=== PATIENT | female | born 1940 | race Caucasian/White ===

== ENCOUNTER → 2018-04-18 08:19 | Outpatient (REF) | payer MEDICARE, SELFPAY ==
[2018-04-18 09:10] LABS: Add Manual Diff / Slide Review NO; Basophils Percent Auto 0.7 % (0-2); Eosinophils Percent Auto 2.8 % (2-4); Hematocrit 42.9 % (36-46); Hemoglobin 14.3 g/dL (12.0-16.0); Lymphocytes Percent Auto 31.2 % (25-40); Mean Corpuscular HGB Conc 33.3 % (30-36); Mean Corpuscular Hemoglobin 30.3 PG (26-34); Mean Corpuscular Volume 90.8 fL (80-100); Monocytes Percent Auto 7.4 % (3-14); Neutrophils Absolute Auto 4600 /uL (3000-5900); Neutrophils Percent Auto 57.9 % (50-75); Platelet Count 283 X10^3/uL (150-400); Red Blood Cell Count 4.73 X10^6/uL (4.0-5.2); Red Cell Distribution Width 13.8 % (11.6-14.8); White Blood Cell Count 7.9 X10^3/uL (4.5-11.0)
[2018-04-18 09:29] LABS: Blood Urea Nitrogen 17 mg/dL (7-17); Calcium 9.2 mg/dL (8.4-10.2); Carbon Dioxide 32 mmol/L (22-32); Chloride 102 mmol/L (98-107); Estimated Glomerular Filt Rate 53.3 mL/min (>60); Glucose 110 mg/dL (80-110); HEMOLYSIS < 15 (0-50); Potassium 3.8 mmol/L (3.4-5.1); Sodium 142 mmol/L (137-145)
[2018-04-18 09:56] LABS: Vitamin D 25 Hydroxy (D3) < 15 ng/mL (30.0-100.0)
[2018-04-18 10:15] LABS: Vitamin B12 431 pg/mL (239-931)
== END ==
LOC: LAB 08:19
PROVIDERS: Family Provider Internal Medicine; PCP Internal Medicine; Visit Provider Nurse Practitioner Family
DX: R41.89 Other symptoms and signs involving cognitive functions and awareness (principal); Z90.5 Acquired absence of kidney
CPT/HCPCS: 36415; 80048; 82306; 82607; 85025

== ENCOUNTER → 2018-07-18 08:08 | Outpatient (REF) | payer MEDICARE, SELFPAY ==
[2018-07-18 09:53] LABS: Vitamin D 25 Hydroxy (D3) 35.7 ng/mL (30.0-100.0)
== END ==
LOC: LAB 08:08
PROVIDERS: Family Provider Internal Medicine; PCP Internal Medicine; Visit Provider Nurse Practitioner Family
DX: E55.9 Vitamin D deficiency, unspecified (principal)
CPT/HCPCS: 36415; 82306

== ENCOUNTER → 2018-12-03 08:49 | Outpatient (REF) | payer MEDICARE, SELFPAY ==
[2018-12-03 10:09] LABS: BUN Creatinine Ratio 17.8 (6-22); Blood Urea Nitrogen 16 mg/dL (7-17); Calcium 8.8 mg/dL (8.4-10.2); Carbon Dioxide 29 mmol/L (22-32); Chloride 103 mmol/L (98-107); Estimated Glomerular Filt Rate > 60.0 mL/min (>60); Glucose 73 mg/dL (80-110); HEMOLYSIS < 15 (0-50); Potassium 4.8 mmol/L (3.4-5.1); Sodium 139 mmol/L (137-145)
[2018-12-03 10:12] LABS: Add Manual Diff / Slide Review NO; Basophils Absolute Auto 0 /uL (0-100); Basophils Percent Auto 0.7 % (0-2); Eosinophils Absolute Auto 200 /uL (0-450); Eosinophils Percent Auto 3.6 % (2-4); Hemoglobin 13.2 g/dL (12.0-16.0); Lymphocytes Absolute Auto 1900 /uL (1100-4500); Lymphocytes Percent Auto 29.5 % (25-40); Mean Corpuscular HGB Conc 33.8 % (30-36); Mean Corpuscular Hemoglobin 30.4 PG (26-34); Mean Corpuscular Volume 89.7 fL (80-100); Monocytes Absolute Auto 400 /uL (0-900); Monocytes Percent Auto 7.1 % (3-14); Neutrophils Absolute Auto 3700 /uL (1500-7000); Neutrophils Percent Auto 59.1 % (50-75); Platelet Count 246 X10^3/uL (150-400); Red Blood Cell Count 4.34 X10^6/uL (4.0-5.2); Red Cell Distribution Width 13.5 % (11.6-14.8); White Blood Cell Count 6.3 X10^3/uL (4.5-11.0)
[2018-12-03 10:42] LABS: Thyroid Stimulating Hormone 0.67 uIU/mL (0.47-4.68)
== END ==
LOC: LAB 08:49
PROVIDERS: Registered Nurse; Family Provider Internal Medicine; PCP Internal Medicine; Visit Provider Internal Medicine
DX: R63.5 Abnormal weight gain (principal)
CPT/HCPCS: 36415; 80048; 84443; 85025

== ENCOUNTER → 2019-01-04 13:03 | Outpatient (CLI) | payer MEDICARE, SELFPAY ==
--- NOTE | 2019-01-04 | DI.MRI.S_ITS ---
PROCEDURE: MR HEAD/BRAIN WO CON INDICATIONS: Unspecified dementia with behavioral disturbance TECHNIQUE: Non-contrast axial T1 spin echo, axial T2 fast spin echo, sagittal and axial FLAIR, coronal T2 fast spin echo, axial gradient echo, axial diffusion and ADC through the brain. COMPARISON: [facility], MR, BRAIN WITHOUT CONTRAST, 05/29/2014, 9:49. FINDINGS: Image quality: Excellent. CSF spaces: Ventricles appear symmetric in size and shape. Basal cisterns are patent. No extra-axial fluid collections. Brain: No intracranial bleeds or mass effects. There is cerebral volume loss for age. There are periventricular and deep white matter chronic small vessel ischemic changes. Brainstem appears normal. Diffusion-weighted images show no acute ischemic insults. No chronic ischemic insults. Normal intravascular flow voids are present. Skull and face: Calvarial bone marrow is normal in signal. Orbits are normal. Note is made of bilateral lens replacements. Sinuses: Sinuses and mastoids are clear. IMPRESSION: Note is made of age-appropriate brain parenchymal volume loss and chronic small vessel ischemic changes. No findings of acute or subacute infarction can be seen. No masses or mass effect can be seen on this noncontrast study. Dictated by: Burton De Luna M.D. on 01/04/2019 at 13:24 Approved by: Burton De Luna M.D. on 01/04/2019 at 13:26
== END ==
PROVIDERS: PCP Registered Nurse; Visit Provider Psychiatry & Neurology Neurology
DX: F03.91 Unspecified dementia, unspecified severity, with behavioral disturbance (principal)
CPT/HCPCS: 70551

== ENCOUNTER 2019-02-21 18:12 | Emergency (ER) | payer MEDICARE, SELFPAY ==
[2019-02-21 18:21] VITALS: BP 138/73; PULSE 75; RESP 18; TEMP 36.7; O2SAT 100
--- NOTE | 2019-02-21 18:45 | ED.NAVMDI ---
HPI - Nausea/Vomiting/Diarrhea <Sofia López PA-C - Last Filed: 02/21/19 22:57> General Chief complaint: Nausea/Vomiting/Diarrhea Stated complaint: fever,vomiting Time Seen by Provider: 02/21/19 18:44 Source: patient and family Mode of arrival: ambulatory Limitations: no limitations History of Present Illness HPI Narrative: This 78-year-old female who resides at assisted living facility due to dementia is brought in by her due to onset of nausea and vomiting a few hours ago. Her states that she did eat lunch today. She has had some reduced appetite in general recently but no acute change. She had nausea and then 1/2 hour later vomited. She has vomited 3 or 4 times prior to arrival and is still feeling sick to her stomach. She denies any abdominal pain. She denies any chest pain or dyspnea. She has not had any diarrhea, states that her bowel movements tend to be somewhat irregular, last unknown, but does not think any acute changes. No recent medication changes. No gastroenteritis outbreaks at the facility or specific exposures known. Patient is able to answer questions about her symptoms but has short-term memory loss. Recent note from her PCP last week notes that she has actually gained weight recently. Related Data Previous Rx's Medication Instructions Recorded ciprofloxacin HCl [Cipro] 500 mg PO BID #14 tab 12/28/16 tramadol 50 mg PO Q6HP PRN #20 tab 01/01/17 donepezil [Aricept] 10 mg PO HS #90 tab 04/25/17 Allergies Allergy/AdvReac Type Severity Reaction Status Date / Time Penicillins [PENICILLINS] Allergy Mild Verified 02/21/19 19:35 Review of Systems <Sofia López PA-C - Last Filed: 02/21/19 22:57> Review of Systems ROS Unobtainable: All systems reviewed & are unremarkable except as noted in HPI and below PFSH <Sofia López PA-C - Last Filed: 02/21/19 22:57> Medical History Dementia (Chronic) History of pancreatitis (Chronic) Surgical History History of cataract removal with insertion of prosthetic lens History of nephrectomy History of tonsillectomy Social History Smoking Status: Never smoker Social History Smoking Status: Never smoker Exam <Sofia López PA-C - Last Filed: 02/21/19 22:57> Narrative Exam Narrative: GENERAL APPEARANCE: Patient sitting comfortably, in no distress. HEENT: PERRL, EOMI, no scleral icterus, conjunctivae pink NECK: Supple LUNGS: Clear to auscultation bilaterally. HEART: Rate and rhythm regular, normal S1 and S2, no S3 or S4. ABDOMEN: Soft, nontender, nondistended, bowel sounds present x 4 quadrants, no masses palpable, no CVAT EXTREMITIES: No edema, no calf tenderness DERMATOLOGIC: No jaundice or exanthem NEUROLOGIC: Alert, little voluntary speech but answers questions appropriately, normal coordination Initial Vital Signs Initial Vital Signs: Vital Signs Temperature 98.1 F 02/21/19 18:21 Pulse Rate 75 02/21/19 18:21 Respiratory Rate 18 02/21/19 18:21 Blood Pressure 138/73 02/21/19 18:21 Pulse Oximetry 100 02/21/19 18:21 <Daniel Green DO - Last Filed: 02/22/19 00:37> Initial Vital Signs Initial Vital Signs: Vital Signs Temperature 98.1 F 02/21/19 18:21 Pulse Rate 75 02/21/19 18:21 Respiratory Rate 18 02/21/19 18:21 Blood Pressure 138/73 02/21/19 18:21 Pulse Oximetry 100 02/21/19 18:21 Course <Sofia López PA-C - Last Filed: 02/21/19 22:57> Additional Information: Patient has been comfortable during her stay, she has not had any recurrent vomiting. She has not had any abdominal pain. No new fever or other new symptoms today. Reviewed her lab and CT findings with her caramel coloring operator Dr. Damon. Will plan to discharge home tonight with Raine, and they will follow up with her tomorrow. Reviewed plan to return if any acutely worsening symptoms with her , and he is agreeable Orders Ordered: ED Orders 02/21/19 19:01 XR acute abdomen series Stat 02/21/19 19:23 Complete Blood Count AUTO DIFF Stat Comprehensive Metabolic Panel Stat Lipase Stat 02/21/19 20:10 US abdomen complete Stat 02/21/19 20:50 UA Complete [Urinalysis and Microscopic] Stat 02/21/19 21:06 CT abdomen pelvis w con Stat Discontinued Medications Sodium Chloride (Normal Saline 0.9%) 1,000 mls @ 1,000 mls/hr IV BOLUS ONE Stop: 02/21/19 19:58 Last Infusion: 02/21/19 21:19 Dose: 0 mls/hr Admin: 02/21/19 19:36 Dose: 1,000 mls/hr Ondansetron HCl (Zofran) 4 mg IV NOW ONE Stop: 02/21/19 19:00 Last Admin: 02/21/19 19:36 Dose: 4 mg Ondansetron HCl (Zofran Odt Prepack) 1 bottle MISC SEEINSTR ONE Stop: 02/21/19 22:08 Last Admin: 02/21/19 22:25 Dose: 1 bottle Pantoprazole Sodium (Protonix) 40 mg IV NOW ONE Stop: 02/21/19 19:00 Last Admin: 02/21/19 19:36 Dose: 40 mg Vital Signs - 8 hr 02/21/19 18:21 02/21/19 19:18 02/21/19 20:00 Temperature 98.1 F Pulse Rate 75 77 72 Respiratory Rate 18 17 Blood Pressure 138/73 Blood Pressure [Right Arm] 143/62 H 130/51 L Pulse Oximetry 100 100 100 02/21/19 21:47 02/21/19 22:33 Temperature 98.1 F Pulse Rate 75 75 Respiratory Rate 16 18 Blood Pressure 126/53 L Blood Pressure [Right Arm] 132/63 Pulse Oximetry 100 100 <Daniel Green DO - Last Filed: 02/22/19 00:37> Orders Ordered: ED Orders 02/21/19 19:01 XR acute abdomen series Stat 02/21/19 19:23 Complete Blood Count AUTO DIFF Stat Comprehensive Metabolic Panel Stat Lipase Stat 02/21/19 20:10 US abdomen complete Stat 02/21/19 20:50 UA Complete [Urinalysis and Microscopic] Stat 02/21/19 21:06 CT abdomen pelvis w con Stat Discontinued Medications Sodium Chloride (Normal Saline 0.9%) 1,000 mls @ 1,000 mls/hr IV BOLUS ONE Stop: 02/21/19 19:58 Last Infusion: 02/21/19 21:19 Dose: 0 mls/hr Admin: 02/21/19 19:36 Dose: 1,000 mls/hr Ondansetron HCl (Zofran) 4 mg IV NOW ONE Stop: 02/21/19 19:00 Last Admin: 02/21/19 19:36 Dose: 4 mg Ondansetron HCl (Zofran Odt Prepack) 1 bottle MISC SEEINSTR ONE Stop: 02/21/19 22:08 Last Admin: 02/21/19 22:25 Dose: 1 bottle Pantoprazole Sodium (Protonix) 40 mg IV NOW ONE Stop: 02/21/19 19:00 Last Admin: 02/21/19 19:36 Dose: 40 mg Vital Signs - 8 hr 02/21/19 18:21 02/21/19 19:18 02/21/19 20:00 Temperature 98.1 F Pulse Rate 75 77 72 Respiratory Rate 18 17 Blood Pressure 138/73 Blood Pressure [Right Arm] 143/62 H 130/51 L Pulse Oximetry 100 100 100 02/21/19 21:47 02/21/19 22:33 Temperature 98.1 F Pulse Rate 75 75 Respiratory Rate 16 18 Blood Pressure 126/53 L Blood Pressure [Right Arm] 132/63 Pulse Oximetry 100 100 MDM - Nausea/Vomiting/Diarrhea <Sofia López PA-C - Last Filed: 02/21/19 22:57> Lab Data Attestation: I reviewed the patient's lab results. Result diagrams: 02/21/19 19:23 02/21/19 19:23 Lab Results 02/21/19 02/21/19 02/21/19 Range/Units 19:23 19:23 20:50 WBC 9.7 (4.5-11.0) X10^3/uL RBC 4.26 (4.0-5.2) X10^6/uL Hgb 12.6 (12.0-16.0) g/dL Hct 37.7 (36-46) % MCV 88.4 (80-100) fL MCH 29.6 (26-34) PG MCHC 33.5 (30-36) % RDW 13.2 (11.6-14.8) % Plt Count 330 (150-400) X10^3/uL Neut % (Auto) 83.7 H (50-75) % Lymph % (Auto) 11.8 L (25-40) % [place] % (Auto) 3.7 (3-14) % Eos % (Auto) 0.1 L (2-4) % Baso % (Auto) 0.7 (0-2) % Neut # (Auto) 8100 H (4329-3601) /uL Lymph # (Auto) 1100 (7362-7734) /uL [place] # (Auto) 400 (0-900) /uL Eos # (Auto) 0 (0-450) /uL Baso # (Auto) 100 (0-100) /uL Sodium 135 L (137-145) mmol/L Potassium 3.7 (3.4-5.1) mmol/L Chloride 99 (98-107) mmol/L Carbon Dioxide 23 (22-32) mmol/L BUN 15 (7-17) mg/dL Creatinine 0.90 (0.52-1.04) mg/dL Estimated GFR > 60.0 (>60) mL/min BUN/Creatinine Ratio 16.7 (6-22) Glucose 180 H (80-110) mg/dL Calcium 9.1 (8.4-10.2) mg/dL Total Bilirubin 0.9 (0.2-1.3) mg/dL AST 34 (14-36) IU/L ALT 24 (9-52) IU/L Alkaline Phosphatase 65 (38-126) U/L Total Protein 7.3 (6.3-8.2) g/dL Albumin 4.1 (3.5-5.0) g/dL Globulin 3.2 (1.7-4.1) g/dL Albumin/Globulin Ratio 1.3 (1.0-2.8) Lipase 1028 H (23-300) U/L Urine Color Yellow Urine Appearance Clear Urine pH 7.5 (4.5-8.0) Ur Specific [place] 1.015 (1.000-1.035) Urine Protein Negative (Negative) Urine Glucose (UA) Negative (Negative) g/dL Urine Ketones 2+ H (NEGATIVE) Urine Occult Blood Negative (Negative) Urine Nitrate Negative (Negative) Urine Bilirubin Negative (NEGATIVE) Urine Urobilinogen 0.2 (0.2) E.U./dL Ur Leukocyte Esterase 1+ H (NEGATIVE) Urine RBC None seen (0-5/HPF) Urine WBC 10-30/hpf H (0-5/HPF) Ur Squamous Epith Cells 5-10 /hpf H (0-5/HPF) Urine Bacteria None seen (None) Ur Culture Indicated? Cult not indicated Imaging Data Abdominal x-ray: Radiologist's impression: 16 Sofia López PA-C Find Patient Imaging Jacey You 78 F 1940 ACTIVITY DATE EXAM STATUS AUTHOR 02/21/19 19:01 Signed Yuni Dudley[address] [address] XRay Report Signed Patient: Jacey You LMR#: [id number] : 8Acct:[id number] Age/Sex: 78 / FDate of Service: 02/21/19 Loc: ED Accession Number: [id number] Procedure: XR acute abdomen series Ordering Provider: Sofia López P.A-C PROCEDURE: XR ACUTE ABDOMEN SERIES INDICATIONS: vomiting, last BM unk (mem. loss) TECHNIQUE: One view chest and two views of the abdomen were acquired. COMPARISON: None. FINDINGS: Surgical changes and devices: Mildly enlarged Chest: Lungs are clear. Heart size is normal. No pleural effusions. No pneumoperitoneum. Abdomen: Bowel gas pattern is normal. No suspicious calcifications. Visualized solid organ contours appear normal. Bones: No suspicious bony lesions. IMPRESSION: No evidence of bowel obstruction or gross free air. No acute cardiopulmonary pathology. Dictated by: Tonio Dudley M.D. on 02/21/2019 at 19:27 Approved by: Tonio Dudley M.D. on 02/21/2019 at 19:28 US - abdomen: Radiologist's impression: [address] [address] Ultrasound Report Signed Patient: Jacey You LMR#: [id number] : 8Acct:[id number] Age/Sex: 78 / FDate of Service: 02/21/19 Loc: ED Accession Number: [id number] Procedure: US abdomen complete Ordering Provider: Fishfader,Sofia P.A-C PROCEDURE: US ABDOMEN COMPLETE INDICATIONS: VOMITING, ELEV LIPASE TECHNIQUE: Real-time scanning was performed of the abdominal and retroperitoneal organs, with image documentation. COMPARISON: None. FINDINGS: Liver: Liver is normal in size and homogeneous in echotexture. Gallbladder: There is no gallstone. No gallbladder wall thickening or pericholecystic fluid. No sonographic Bose's sign. Biliary ducts: Intrahepatic bile ducts are non-dilated. Extrahepatic bile duct caliber measures 7.8 mm. Normal is 6-7 mm or less in diameter, or 10 mm or less post-cholecystectomy. Pancreas: Visualized portions of the pancreas are sonographically normal. Pancreatic duct measures 4.7 mm in size diameter. Spleen: Spleen is normal in size and homogeneous in echotexture. Kidneys: Right kidney measures 13.8 cm in length. Prominence of right renal collecting system is seen persists after voiding and may represent extrarenal pelvis versus moderate right hydronephrosis. Left kidney is surgically absent. Aorta: Visualized aorta is normal in caliber at less than 3 cm. Iliacs: Proximal common iliac arteries are normal in caliber at less than 2.5 cm. IVC: Intrahepatic inferior vena cava is patent. Miscellaneous: No free abdominal fluid. Urinary bladder is well-distended and shows no gross bladder wall abnormality. Large amount of post void residual is seen. IMPRESSION: 1. Normal appearing liver, spleen, gallbladder. Slightly prominent pancreatic duct is seen, no discrete pancreatic lesion is noted. 2. Common bile duct size is in the upper limits of normal for patient's age. 3. Prominence of right renal collecting system, and may represent extrarenal pelvis versus hydronephrosis versus reflex. Large amount of post void residual. and may indicate reflux pathology. Dictated by: Tonio Dudley M.D. on 02/21/2019 at 21:33 Approved by: Tonio Dudley M.D. on 02/21/2019 at 21:38 CT scan - abdomen: Radiologist's impression: 13 Sofia López PA-C Find Patient Imaging Jacey You 78 F 1940 ACTIVITY DATE EXAM STATUS AUTHOR 02/21/19 21:06 Signed Tonio Dudley 02/21/19 20:10 Signed Tonio Dudley 02/21/19 19:01 Signed Tonio Dudley [address] [address] [address] Scan Report Signed Patient: Jacey You LMR#: [id number] : 1940Acct:[id number] Age/Sex: 78 / FDate of Service: 02/21/19 Loc: ED Accession Number: [id number] Procedure: CT abdomen pelvis w con Ordering Provider: Sofia López P.A-C PROCEDURE: CT ABDOMEN PELVIS W CON INDICATIONS: elevated lipase, vomiting TECHNIQUE: After the administration of intravenous contrast, 5 mm thick sections acquired from the diaphragm to the symphysis. 5 mm coronal and sagittal reformats were acquired. For radiation dose reduction, the following was used: automated exposure control, adjustment of mA and/or kV according to patient size. COMPARISON: [facility], CT, ABDOMEN/PELVIS WITH CONTRAST, 01/15/2015, 9:06. FINDINGS: Image quality: Excellent. ABDOMEN: Lung bases: 7 mm nodular density in the anterior aspect of left lung base is seen, not seen on 2015 study series 3 image one. Bilateral lung bases are otherwise clear. Heart size is normal. Solid organs: Liver is normal in size and enhancement. Gallbladder is within normal limits. There is no intrahepatic biliary ductal dilatation. Common bile duct measures up to 7 mm in diameter and is within normal limits for patient's age. Mild prominence of pancreatic duct is seen and measures up to 4.5 mm in diameter near the head and uncinate process of pancreas. No definite discrete pancreatic mass is identified. Spleen is normal in size and enhancement. No adrenal nodules. Left kidney is surgically absent. Marked prominence of right renal collecting system and right ureter is seen extending to the level of the right UVJ. No calcified renal stone or ureteral stone is seen. Peritoneum and bowel: There is a small hiatal hernia. No abnormal bowel wall thickening or mesenteric fat stranding. No free fluid or free air. Sigmoid diverticulosis is seen, no CT evidence of acute diverticulitis. Nodes and vessels: No retroperitoneal or mesenteric adenopathy by size criteria. Aorta and inferior vena cava are normal in size. Miscellaneous: Small umbilical hernia is seen containing fat only. PELVIS: Genitourinary: Urinary bladder is markedly distended. Bladder wall thickness is normal. No calcified bladder stone. Miscellaneous: No inguinal hernias or adenopathy. Bones: No suspicious bony lesions. No vertebral body compression fractures. Osteoarthritic changes throughout bony pelvis are seen. Degenerative disc disease through all lower thoracic and lumbar spine is also noted. IMPRESSION: 1. Mild prominence of pancreatic duct near pancreatic head and uncinate process and measures up to 4.5 mm in diameter, increased since 2015 study. No gross abnormality is seen in gallbladder. Common bile duct is normal in size for patient's age. 2. Prior left nephrectomy. Prominence of right renal collecting system and right ureter extending to the level of the right UVJ with distended urinary bladder. No calcified renal stone, ureteral stone or bladder stone is seen. Finding likely represent reflex pathology. 3. No bowel obstruction. Small hiatal hernia. Sigmoid diverticulosis with no CT evidence of acute diverticulitis. No free fluid or free air. 4. 7 mm soft tissue density nodule in anterior aspect of left lung base. CT of chest in 3-6 months is recommended for evaluation of stability. Dictated by: Tonio Dudley M.D. on 02/21/2019 at 21:41 Approved by: Tonio Dudley M.D. on 02/21/2019 at 21:54 <Daniel Green DO - Last Filed: 02/22/19 00:37> Lab Data Lab Results 02/21/19 02/21/19 02/21/19 Range/Units 19:23 19:23 20:50 WBC 9.7 (4.5-11.0) X10^3/uL RBC 4.26 (4.0-5.2) X10^6/uL Hgb 12.6 (12.0-16.0) g/dL Hct 37.7 (36-46) % MCV 88.4 (80-100) fL MCH 29.6 (26-34) PG MCHC 33.5 (30-36) % RDW 13.2 (11.6-14.8) % Plt Count 330 (150-400) X10^3/uL Neut % (Auto) 83.7 H (50-75) % Lymph % (Auto) 11.8 L (25-40) % [place] % (Auto) 3.7 (3-14) % Eos % (Auto) 0.1 L (2-4) % Baso % (Auto) 0.7 (0-2) % Neut # (Auto) 8100 H (1522-3806) /uL Lymph # (Auto) 1100 (7886-4627) /uL [place] # (Auto) 400 (0-900) /uL Eos # (Auto) 0 (0-450) /uL Baso # (Auto) 100 (0-100) /uL Sodium 135 L (137-145) mmol/L Potassium 3.7 (3.4-5.1) mmol/L Chloride 99 (98-107) mmol/L Carbon Dioxide 23 (22-32) mmol/L BUN 15 (7-17) mg/dL Creatinine 0.90 (0.52-1.04) mg/dL Estimated GFR > 60.0 (>60) mL/min BUN/Creatinine Ratio 16.7 (6-22) Glucose 180 H (80-110) mg/dL Calcium 9.1 (8.4-10.2) mg/dL Total Bilirubin 0.9 (0.2-1.3) mg/dL AST 34 (14-36) IU/L ALT 24 (9-52) IU/L Alkaline Phosphatase 65 (38-126) U/L Total Protein 7.3 (6.3-8.2) g/dL Albumin 4.1 (3.5-5.0) g/dL Globulin 3.2 (1.7-4.1) g/dL Albumin/Globulin Ratio 1.3 (1.0-2.8) Lipase 1028 H (23-300) U/L Urine Color Yellow Urine Appearance Clear Urine pH 7.5 (4.5-8.0) Ur Specific [place] 1.015 (1.000-1.035) Urine Protein Negative (Negative) Urine Glucose (UA) Negative (Negative) g/dL Urine Ketones 2+ H (NEGATIVE) Urine Occult Blood Negative (Negative) Urine Nitrate Negative (Negative) Urine Bilirubin Negative (NEGATIVE) Urine Urobilinogen 0.2 (0.2) E.U./dL Ur Leukocyte Esterase 1+ H (NEGATIVE) Urine RBC None seen (0-5/HPF) Urine WBC 10-30/hpf H (0-5/HPF) Ur Squamous Epith Cells 5-10 /hpf H (0-5/HPF) Urine Bacteria None seen (None) Ur Culture Indicated? Cult not indicated Discharge Plan Departure Patient Disposition: Assisted Living Clinical Impression: Nausea & vomiting Qualifiers: Vomiting type: unspecified Vomiting Intractability: non-intractable Qualified Code(s): R11.2 - Nausea with vomiting, unspecified Discharge Date/Time: 02/21/19 22:33 Interventions: ED Discharge Assessment Last Done: 02/21/19 22:33 Instructions: DI for Vomiting -- Adult Activity Restrictions/Additional Instructions: As we talked about, you should return if you have any acutely worsening symptoms again or new symptoms such as pain or fever. Otherwise, you can rest at home tonight. Drink clear fluids. I have sent home if you nausea pills for you which are the same medicine we gave you in the IV. You can take these tonight or in the morning if you need them. I have spoken with your primary care providers regarding follow-up for you tomorrow. I have reviewed your imaging and lab findings with them. Prescriptions: No Action ciprofloxacin HCl [Cipro] 500 MG tablet 500 mg PO BID Qty: 14 RF: 0 tramadol 50 MG tablet 50 mg PO Q6HP PRNQty: 20 RF: 0 donepezil [Aricept] 10 MG tablet 10 mg PO HS Qty: 90 RF: 3 Referrals: Angeles Damon MD [Physician] - <Daniel Green DO - Last Filed: 02/22/19 00:37> [facility] Justus Attestation: I was available for consultation during this patient's emergency department encounter
--- NOTE | 2019-02-21 19:01 | DI.RAD.S_ITS ---
PROCEDURE: XR ACUTE ABDOMEN SERIES INDICATIONS: vomiting, last BM unk (mem. loss) TECHNIQUE: One view chest and two views of the abdomen were acquired. COMPARISON: None. FINDINGS: Surgical changes and devices: Mildly enlarged Chest: Lungs are clear. Heart size is normal. No pleural effusions. No pneumoperitoneum. Abdomen: Bowel gas pattern is normal. No suspicious calcifications. Visualized solid organ contours appear normal. Bones: No suspicious bony lesions. IMPRESSION: No evidence of bowel obstruction or gross free air. No acute cardiopulmonary pathology. Dictated by: Tonio Dudley M.D. on 02/21/2019 at 19:27 Approved by: Tonio Dudley M.D. on 02/21/2019 at 19:28
[2019-02-21 19:18] VITALS: BP 143/62; PULSE 77; RESP 17; O2SAT 100
--- NOTE | 2019-02-21 19:22 | ED_ITS ---
HPI - Nausea/Vomiting/Diarrhea <Sofia López PA-C - Last Filed: 02/21/19 22:57> General Chief complaint: Nausea/Vomiting/Diarrhea Stated complaint: fever,vomiting Time Seen by Provider: 02/21/19 18:44 Source: patient and family Mode of arrival: ambulatory Limitations: no limitations History of Present Illness HPI Narrative: This 78-year-old female who resides at assisted living facility due to dementia is brought in by her due to onset of nausea and vomiting a few hours ago. Her states that she did eat lunch today. She has had some reduced appetite in general recently but no acute change. She had nausea and then 1/2 hour later vomited. She has vomited 3 or 4 times prior to arrival and is still feeling sick to her stomach. She denies any abdominal pain. She denies any chest pain or dyspnea. She has not had any diarrhea, states that her bowel movements tend to be somewhat irregular, last unknown, but does not think any acute changes. No recent medication changes. No gastroenteritis outbreaks at the facility or specific exposures known. Patient is able to answer questions about her symptoms but has short-term memory loss. Recent note from her PCP last week notes that she has actually gained weight recently. Related Data Previous Rx's Medication Instructions Recorded ciprofloxacin HCl [Cipro] 500 mg PO BID #14 tab 12/28/16 tramadol 50 mg PO Q6HP PRN #20 tab 01/01/17 donepezil [Aricept] 10 mg PO HS #90 tab 04/25/17 Allergies Allergy/AdvReac Type Severity Reaction Status Date / Time Penicillins [PENICILLINS] Allergy Mild Verified 02/21/19 19:35 Review of Systems <Sofia López PA-C - Last Filed: 02/21/19 22:57> Review of Systems ROS Unobtainable: All systems reviewed & are unremarkable except as noted in HPI and below PFSH <Sofia López PA-C - Last Filed: 02/21/19 22:57> Medical History Dementia (Chronic) History of pancreatitis (Chronic) Surgical History History of cataract removal with insertion of prosthetic lens History of nephrectomy History of tonsillectomy Social History Smoking Status: Never smoker Social History Smoking Status: Never smoker Exam <Sofia López PA-C - Last Filed: 02/21/19 22:57> Narrative Exam Narrative: GENERAL APPEARANCE: Patient sitting comfortably, in no distress. HEENT: PERRL, EOMI, no scleral icterus, conjunctivae pink NECK: Supple LUNGS: Clear to auscultation bilaterally. HEART: Rate and rhythm regular, normal S1 and S2, no S3 or S4. ABDOMEN: Soft, nontender, nondistended, bowel sounds present x 4 quadrants, no masses palpable, no CVAT EXTREMITIES: No edema, no calf tenderness DERMATOLOGIC: No jaundice or exanthem NEUROLOGIC: Alert, little voluntary speech but answers questions appropriately, normal coordination Initial Vital Signs Initial Vital Signs: Vital Signs Temperature 98.1 F 02/21/19 18:21 Pulse Rate 75 02/21/19 18:21 Respiratory Rate 18 02/21/19 18:21 Blood Pressure 138/73 02/21/19 18:21 Pulse Oximetry 100 02/21/19 18:21 <Daniel Green DO - Last Filed: 02/22/19 00:37> Initial Vital Signs Initial Vital Signs: Vital Signs Temperature 98.1 F 02/21/19 18:21 Pulse Rate 75 02/21/19 18:21 Respiratory Rate 18 02/21/19 18:21 Blood Pressure 138/73 02/21/19 18:21 Pulse Oximetry 100 02/21/19 18:21 Course <Sofia López PA-C - Last Filed: 02/21/19 22:57> Additional Information: Patient has been comfortable during her stay, she has not had any recurrent vomiting. She has not had any abdominal pain. No new fever or other new symptoms today. Reviewed her lab and CT findings with her sheet metal duct installer helper Dr. Damon. Will plan to discharge home tonight with Raine, and they will follow up with her tomorrow. Reviewed plan to return if any acutely worsening symptoms with her , and he is agreeable Orders Ordered: ED Orders 02/21/19 19:01 XR acute abdomen series Stat 02/21/19 19:23 Complete Blood Count AUTO DIFF Stat Comprehensive Metabolic Panel Stat Lipase Stat 02/21/19 20:10 US abdomen complete Stat 02/21/19 20:50 UA Complete [Urinalysis and Microscopic] Stat 02/21/19 21:06 CT abdomen pelvis w con Stat Discontinued Medications Sodium Chloride (Normal Saline 0.9%) 1,000 mls @ 1,000 mls/hr IV BOLUS ONE Stop: 02/21/19 19:58 Last Infusion: 02/21/19 21:19 Dose: 0 mls/hr Admin: 02/21/19 19:36 Dose: 1,000 mls/hr Ondansetron HCl (Zofran) 4 mg IV NOW ONE Stop: 02/21/19 19:00 Last Admin: 02/21/19 19:36 Dose: 4 mg Ondansetron HCl (Zofran Odt Prepack) 1 bottle MISC SEEINSTR ONE Stop: 02/21/19 22:08 Last Admin: 02/21/19 22:25 Dose: 1 bottle Pantoprazole Sodium (Protonix) 40 mg IV NOW ONE Stop: 02/21/19 19:00 Last Admin: 02/21/19 19:36 Dose: 40 mg Vital Signs - 8 hr 02/21/19 18:21 02/21/19 19:18 02/21/19 20:00 Temperature 98.1 F Pulse Rate 75 77 72 Respiratory Rate 18 17 Blood Pressure 138/73 Blood Pressure [Right Arm] 143/62 H 130/51 L Pulse Oximetry 100 100 100 02/21/19 21:47 02/21/19 22:33 Temperature 98.1 F Pulse Rate 75 75 Respiratory Rate 16 18 Blood Pressure 126/53 L Blood Pressure [Right Arm] 132/63 Pulse Oximetry 100 100 <Daniel Green DO - Last Filed: 02/22/19 00:37> Orders Ordered: ED Orders 02/21/19 19:01 XR acute abdomen series Stat 02/21/19 19:23 Complete Blood Count AUTO DIFF Stat Comprehensive Metabolic Panel Stat Lipase Stat 02/21/19 20:10 US abdomen complete Stat 02/21/19 20:50 UA Complete [Urinalysis and Microscopic] Stat 02/21/19 21:06 CT abdomen pelvis w con Stat Discontinued Medications Sodium Chloride (Normal Saline 0.9%) 1,000 mls @ 1,000 mls/hr IV BOLUS ONE Stop: 02/21/19 19:58 Last Infusion: 02/21/19 21:19 Dose: 0 mls/hr Admin: 02/21/19 19:36 Dose: 1,000 mls/hr Ondansetron HCl (Zofran) 4 mg IV NOW ONE Stop: 02/21/19 19:00 Last Admin: 02/21/19 19:36 Dose: 4 mg Ondansetron HCl (Zofran Odt Prepack) 1 bottle MISC SEEINSTR ONE Stop: 02/21/19 22:08 Last Admin: 02/21/19 22:25 Dose: 1 bottle Pantoprazole Sodium (Protonix) 40 mg IV NOW ONE Stop: 02/21/19 19:00 Last Admin: 02/21/19 19:36 Dose: 40 mg Vital Signs - 8 hr 02/21/19 18:21 02/21/19 19:18 02/21/19 20:00 Temperature 98.1 F Pulse Rate 75 77 72 Respiratory Rate 18 17 Blood Pressure 138/73 Blood Pressure [Right Arm] 143/62 H 130/51 L Pulse Oximetry 100 100 100 02/21/19 21:47 02/21/19 22:33 Temperature 98.1 F Pulse Rate 75 75 Respiratory Rate 16 18 Blood Pressure 126/53 L Blood Pressure [Right Arm] 132/63 Pulse Oximetry 100 100 MDM - Nausea/Vomiting/Diarrhea <Sofia López PA-C - Last Filed: 02/21/19 22:57> Lab Data Attestation: I reviewed the patient's lab results. Result diagrams: 02/21/19 19:23 02/21/19 19:23 Lab Results 02/21/19 02/21/19 02/21/19 Range/Units 19:23 19:23 20:50 WBC 9.7 (4.5-11.0) X10^3/uL RBC 4.26 (4.0-5.2) X10^6/uL Hgb 12.6 (12.0-16.0) g/dL Hct 37.7 (36-46) % MCV 88.4 (80-100) fL MCH 29.6 (26-34) PG MCHC 33.5 (30-36) % RDW 13.2 (11.6-14.8) % Plt Count 330 (150-400) X10^3/uL Neut % (Auto) 83.7 H (50-75) % Lymph % (Auto) 11.8 L (25-40) % [place] % (Auto) 3.7 (3-14) % Eos % (Auto) 0.1 L (2-4) % Baso % (Auto) 0.7 (0-2) % Neut # (Auto) 8100 H (0488-9133) /uL Lymph # (Auto) 1100 (7497-3748) /uL [place] # (Auto) 400 (0-900) /uL Eos # (Auto) 0 (0-450) /uL Baso # (Auto) 100 (0-100) /uL Sodium 135 L (137-145) mmol/L Potassium 3.7 (3.4-5.1) mmol/L Chloride 99 (98-107) mmol/L Carbon Dioxide 23 (22-32) mmol/L BUN 15 (7-17) mg/dL Creatinine 0.90 (0.52-1.04) mg/dL Estimated GFR > 60.0 (>60) mL/min BUN/Creatinine Ratio 16.7 (6-22) Glucose 180 H (80-110) mg/dL Calcium 9.1 (8.4-10.2) mg/dL Total Bilirubin 0.9 (0.2-1.3) mg/dL AST 34 (14-36) IU/L ALT 24 (9-52) IU/L Alkaline Phosphatase 65 (38-126) U/L Total Protein 7.3 (6.3-8.2) g/dL Albumin 4.1 (3.5-5.0) g/dL Globulin 3.2 (1.7-4.1) g/dL Albumin/Globulin Ratio 1.3 (1.0-2.8) Lipase 1028 H (23-300) U/L Urine Color Yellow Urine Appearance Clear Urine pH 7.5 (4.5-8.0) Ur Specific [place] 1.015 (1.000-1.035) Urine Protein Negative (Negative) Urine Glucose (UA) Negative (Negative) g/dL Urine Ketones 2+ H (NEGATIVE) Urine Occult Blood Negative (Negative) Urine Nitrate Negative (Negative) Urine Bilirubin Negative (NEGATIVE) Urine Urobilinogen 0.2 (0.2) E.U./dL Ur Leukocyte Esterase 1+ H (NEGATIVE) Urine RBC None seen (0-5/HPF) Urine WBC 10-30/hpf H (0-5/HPF) Ur Squamous Epith Cells 5-10 /hpf H (0-5/HPF) Urine Bacteria None seen (None) Ur Culture Indicated? Cult not indicated Imaging Data Abdominal x-ray: Radiologist's impression: 16 Sofia López PA-C Find Patient Imaging Jacey You 78 F 1940 ACTIVITY DATE EXAM STATUS AUTHOR 02/21/19 19:01 Signed Yuni Dudley[address] [address] XRay Report Signed Patient: Jacey You LMR#: [id number] : 8Acct:[id number] Age/Sex: 78 / FDate of Service: 02/21/19 Loc: ED Accession Number: [id number] Procedure: XR acute abdomen series Ordering Provider: Sofia López P.A-C PROCEDURE: XR ACUTE ABDOMEN SERIES INDICATIONS: vomiting, last BM unk (mem. loss) TECHNIQUE: One view chest and two views of the abdomen were acquired. COMPARISON: None. FINDINGS: Surgical changes and devices: Mildly enlarged Chest: Lungs are clear. Heart size is normal. No pleural effusions. No pneumoperitoneum. Abdomen: Bowel gas pattern is normal. No suspicious calcifications. Visualized solid organ contours appear normal. Bones: No suspicious bony lesions. IMPRESSION: No evidence of bowel obstruction or gross free air. No acute cardiopulmonary pathology. Dictated by: Tonio Dudley M.D. on 02/21/2019 at 19:27 Approved by: Tonio Dudley M.D. on 02/21/2019 at 19:28 US - abdomen: Radiologist's impression: [address] [address] Ultrasound Report Signed Patient: Jacey You LMR#: [id number] : 8Acct:[id number] Age/Sex: 78 / FDate of Service: 02/21/19 Loc: ED Accession Number: [id number] Procedure: US abdomen complete Ordering Provider: Fishfader,Sofia P.A-C PROCEDURE: US ABDOMEN COMPLETE INDICATIONS: VOMITING, ELEV LIPASE TECHNIQUE: Real-time scanning was performed of the abdominal and retroperitoneal organs, with image documentation. COMPARISON: None. FINDINGS: Liver: Liver is normal in size and homogeneous in echotexture. Gallbladder: There is no gallstone. No gallbladder wall thickening or pericholecystic fluid. No sonographic Bose's sign. Biliary ducts: Intrahepatic bile ducts are non-dilated. Extrahepatic bile duct caliber measures 7.8 mm. Normal is 6-7 mm or less in diameter, or 10 mm or less post-cholecystectomy. Pancreas: Visualized portions of the pancreas are sonographically normal. Pancreatic duct measures 4.7 mm in size diameter. Spleen: Spleen is normal in size and homogeneous in echotexture. Kidneys: Right kidney measures 13.8 cm in length. Prominence of right renal collecting system is seen persists after voiding and may represent extrarenal pelvis versus moderate right hydronephrosis. Left kidney is surgically absent. Aorta: Visualized aorta is normal in caliber at less than 3 cm. Iliacs: Proximal common iliac arteries are normal in caliber at less than 2.5 cm. IVC: Intrahepatic inferior vena cava is patent. Miscellaneous: No free abdominal fluid. Urinary bladder is well-distended and shows no gross bladder wall abnormality. Large amount of post void residual is seen. IMPRESSION: 1. Normal appearing liver, spleen, gallbladder. Slightly prominent pancreatic duct is seen, no discrete pancreatic lesion is noted. 2. Common bile duct size is in the upper limits of normal for patient's age. 3. Prominence of right renal collecting system, and may represent extrarenal pelvis versus hydronephrosis versus reflex. Large amount of post void residual. and may indicate reflux pathology. Dictated by: Tonio Dudley M.D. on 02/21/2019 at 21:33 Approved by: Tonio Dudley M.D. on 02/21/2019 at 21:38 CT scan - abdomen: Radiologist's impression: 13 Sofia López PA-C Find Patient Imaging Jacey You 78 F 1940 ACTIVITY DATE EXAM STATUS AUTHOR 02/21/19 21:06 Signed Tonio Dudley 02/21/19 20:10 Signed Tonio Dudley 02/21/19 19:01 Signed Tonio Dudley [address] [address] [address] Scan Report Signed Patient: Jacey You LMR#: [id number] : 1940Acct:[id number] Age/Sex: 78 / FDate of Service: 02/21/19 Loc: ED Accession Number: [id number] Procedure: CT abdomen pelvis w con Ordering Provider: Sofia López P.A-C PROCEDURE: CT ABDOMEN PELVIS W CON INDICATIONS: elevated lipase, vomiting TECHNIQUE: After the administration of intravenous contrast, 5 mm thick sections acquired from the diaphragm to the symphysis. 5 mm coronal and sagittal reformats were acquired. For radiation dose reduction, the following was used: automated exposure control, adjustment of mA and/or kV according to patient size. COMPARISON: [facility], CT, ABDOMEN/PELVIS WITH CONTRAST, 01/15/2015, 9:06. FINDINGS: Image quality: Excellent. ABDOMEN: Lung bases: 7 mm nodular density in the anterior aspect of left lung base is seen, not seen on 2015 study series 3 image one. Bilateral lung bases are otherwise clear. Heart size is normal. Solid organs: Liver is normal in size and enhancement. Gallbladder is within normal limits. There is no intrahepatic biliary ductal dilatation. Common bile duct measures up to 7 mm in diameter and is within normal limits for patient's age. Mild promin ence of pancreatic duct is seen and measures up to 4.5 mm in diameter near the head and uncinate process of pancreas. No definite discrete pancreatic mass is identified. Spleen is normal in size and enhancement. No adrenal nodules. Left kidney is surgically absent. Marked prominence of right renal collecting system and right ureter is seen extending to the level of the right UVJ. No calcified renal stone or ureteral stone is seen. Peritoneum and bowel: There is a small hiatal hernia. No abnormal bowel wall thickening or mesenteric fat stranding. No free fluid or free air. Sigmoid diverticulosis is seen, no CT evidence of acute diverticulitis. Nodes and vessels: No retroperitoneal or mesenteric adenopathy by size criteria. Aorta and inferior vena cava are normal in size. Miscellaneous: Small umbilical hernia is seen containing fat only. PELVIS: Genitourinary: Urinary bladder is markedly distended. Bladder wall thickness is normal. No calcified bladder stone. Miscellaneous: No inguinal hernias or adenopathy. Bones: No suspicious bony lesions. No vertebral body compression fractures. Osteoarthritic changes throughout bony pelvis are seen. Degenerative disc disease through all lower thoracic and lumbar spine is also noted. IMPRESSION: 1. Mild prominence of pancreatic duct near pancreatic head and uncinate process and measures up to 4.5 mm in diameter, increased since 2015 study. No gross abnormality is seen in gallbladder. Common bile duct is normal in size for patient's age. 2. Prior left nephrectomy. Prominence of right renal collecting system and right ureter extending to the level of the right UVJ with distended urinary bladder. No calcified renal stone, ureteral stone or bladder stone is seen. Finding likely represent reflex pathology. 3. No bowel obstruction. Small hiatal hernia. Sigmoid diverticulosis with no CT evidence of acute diverticulitis. No free fluid or free air. 4. 7 mm soft tissue density nodule in anterior aspect of left lung base. CT of chest in 3-6 months is recommended for evaluation of stability. Dictated by: Tonio Dudley M.D. on 02/21/2019 at 21:41 Approved by: Tonio Dudley M.D. on 02/21/2019 at 21:54 <Daniel Green DO - Last Filed: 02/22/19 00:37> Lab Data Lab Results 02/21/19 02/21/19 02/21/19 Range/Units 19:23 19:23 20:50 WBC 9.7 (4.5-11.0) X10^3/uL RBC 4.26 (4.0-5.2) X10^6/uL Hgb 12.6 (12.0-16.0) g/dL Hct 37.7 (36-46) % MCV 88.4 (80-100) fL MCH 29.6 (26-34) PG MCHC 33.5 (30-36) % RDW 13.2 (11.6-14.8) % Plt Count 330 (150-400) X10^3/uL Neut % (Auto) 83.7 H (50-75) % Lymph % (Auto) 11.8 L (25-40) % [place] % (Auto) 3.7 (3-14) % Eos % (Auto) 0.1 L (2-4) % Baso % (Auto) 0.7 (0-2) % Neut # (Auto) 8100 H (2155-2761) /uL Lymph # (Auto) 1100 (2282-5920) /uL [place] # (Auto) 400 (0-900) /uL Eos # (Auto) 0 (0-450) /uL Baso # (Auto) 100 (0-100) /uL Sodium 135 L (137-145) mmol/L Potassium 3.7 (3.4-5.1) mmol/L Chloride 99 (98-107) mmol/L Carbon Dioxide 23 (22-32) mmol/L BUN 15 (7-17) mg/dL Creatinine 0.90 (0.52-1.04) mg/dL Estimated GFR > 60.0 (>60) mL/min BUN/Creatinine Ratio 16.7 (6-22) Glucose 180 H (80-110) mg/dL Calcium 9.1 (8.4-10.2) mg/dL Total Bilirubin 0.9 (0.2-1.3) mg/dL AST 34 (14-36) IU/L ALT 24 (9-52) IU/L Alkaline Phosphatase 65 (38-126) U/L Total Protein 7.3 (6.3-8.2) g/dL Albumin 4.1 (3.5-5.0) g/dL Globulin 3.2 (1.7-4.1) g/dL Albumin/Globulin Ratio 1.3 (1.0-2.8) Lipase 1028 H (23-300) U/L Urine Color Yellow Urine Appearance Clear Urine pH 7.5 (4.5-8.0) Ur Specific [place] 1.015 (1.000-1.035) Urine Protein Negative (Negative) Urine Glucose (UA) Negative (Negative) g/dL Urine Ketones 2+ H (NEGATIVE) Urine Occult Blood Negative (Negative) Urine Nitrate Negative (Negative) Urine Bilirubin Negative (NEGATIVE) Urine Urobilinogen 0.2 (0.2) E.U./dL Ur Leukocyte Esterase 1+ H (NEGATIVE) Urine RBC None seen (0-5/HPF) Urine WBC 10-30/hpf H (0-5/HPF) Ur Squamous Epith Cells 5-10 /hpf H (0-5/HPF) Urine Bacteria None seen (None) Ur Culture Indicated? Cult not indicated Discharge Plan Departure Patient Disposition: Assisted Living Clinical Impression: Nausea & vomiting Qualifiers: Vomiting type: unspecified Vomiting Intractability: non-intractable Qualified Code(s): R11.2 - Nausea with vomiting, unspecified Discharge Date/Time: 02/21/19 22:33 Interventions: ED Discharge Assessment Last Done: 02/21/19 22:33 Instructions: DI for Vomiting -- Adult Activity Restrictions/Additional Instructions: As we talked about, you should return if you have any acutely worsening symptoms again or new symptoms such as pain or fever. Otherwise, you can rest at home tonight. Drink clear fluids. I have sent home if you nausea pills for you which are the same medicine we gave you in the IV. You can take these tonight or in the morning if you need them. I have spoken with your primary care providers regarding follow-up for you tomorrow. I have reviewed your imaging and lab findings with them. Prescriptions: No Action ciprofloxacin HCl [Cipro] 500 MG tablet 500 mg PO BID Qty: 14 RF: 0 tramadol 50 MG tablet 50 mg PO Q6HP PRNQty: 20 RF: 0 donepezil [Aricept] 10 MG tablet 10 mg PO HS Qty: 90 RF: 3 Referrals: Angeles Damon MD [Physician] - <Daniel Green DO - Last Filed: 02/22/19 00:37> [facility] ED Attending Justus Attestation: I was available for consultation during this patient's emergency department encounter
[2019-02-21 19:35] LABS: Add Manual Diff / Slide Review NO; Basophils Absolute Auto 100 /uL (0-100); Basophils Percent Auto 0.7 % (0-2); Eosinophils Absolute Auto 0 /uL (0-450); Eosinophils Percent Auto 0.1 % (2-4); Hematocrit 37.7 % (36-46); Hemoglobin 12.6 g/dL (12.0-16.0); Lymphocytes Absolute Auto 1100 /uL (1100-4500); Lymphocytes Percent Auto 11.8 % (25-40); Mean Corpuscular HGB Conc 33.5 % (30-36); Mean Corpuscular Hemoglobin 29.6 PG (26-34); Mean Corpuscular Volume 88.4 fL (80-100); Monocytes Absolute Auto 400 /uL (0-900); Monocytes Percent Auto 3.7 % (3-14); Neutrophils Absolute Auto 8100 /uL (1500-7000); Neutrophils Percent Auto 83.7 % (50-75); Platelet Count 330 X10^3/uL (150-400); Red Blood Cell Count 4.26 X10^6/uL (4.0-5.2); Red Cell Distribution Width 13.2 % (11.6-14.8); White Blood Cell Count 9.7 X10^3/uL (4.5-11.0)
[2019-02-21] MEDS: PANTOPRAZOLE 40 MG VIAL IV (19:36)
[2019-02-21] MEDS: ONDANSETRON 4 MG/2 ML INJ IV (19:36)
[2019-02-21] MEDS: SODIUM CHLORIDE 0.9% 1,000 ML 1000 ML IV (19:36)
[2019-02-21 19:46] LABS: Alanine Aminotransferase 24 IU/L (9-52); Albumin 4.1 g/dL (3.5-5.0); Albumin Globulin Ratio 1.3 (1.0-2.8); Alkaline Phosphatase 65 U/L (38-126); Aspartate Aminotransferase 34 IU/L (14-36); BUN Creatinine Ratio 16.7 (6-22); Bilirubin Total 0.9 mg/dL (0.2-1.3); Blood Urea Nitrogen 15 mg/dL (7-17); Calcium 9.1 mg/dL (8.4-10.2); Carbon Dioxide 23 mmol/L (22-32); Chloride 99 mmol/L (98-107); Estimated Glomerular Filt Rate > 60.0 mL/min (>60); Globulin 3.2 g/dL (1.7-4.1); Glucose 180 mg/dL (80-110); HEMOLYSIS 46 (0-50); Lipase 1028 U/L (23-300); Potassium 3.7 mmol/L (3.4-5.1); Sodium 135 mmol/L (137-145); Total Protein 7.3 g/dL (6.3-8.2)
[2019-02-21 20:00] VITALS: BP 130/51; PULSE 72; O2SAT 100
--- NOTE | 2019-02-21 20:10 | DI.US.S_ITS ---
PROCEDURE: US ABDOMEN COMPLETE INDICATIONS: VOMITING, ELEV LIPASE TECHNIQUE: Real-time scanning was performed of the abdominal and retroperitoneal organs, with image documentation. COMPARISON: None. FINDINGS: Liver: Liver is normal in size and homogeneous in echotexture. Gallbladder: There is no gallstone. No gallbladder wall thickening or pericholecystic fluid. No sonographic Bose's sign. Biliary ducts: Intrahepatic bile ducts are non-dilated. Extrahepatic bile duct caliber measures 7.8 mm. Normal is 6-7 mm or less in diameter, or 10 mm or less post-cholecystectomy. Pancreas: Visualized portions of the pancreas are sonographically normal. Pancreatic duct measures 4.7 mm in size diameter. Spleen: Spleen is normal in size and homogeneous in echotexture. Kidneys: Right kidney measures 13.8 cm in length. Prominence of right renal collecting system is seen persists after voiding and may represent extrarenal pelvis versus moderate right hydronephrosis. Left kidney is surgically absent. Aorta: Visualized aorta is normal in caliber at less than 3 cm. Iliacs: Proximal common iliac arteries are normal in caliber at less than 2.5 cm. IVC: Intrahepatic inferior vena cava is patent. Miscellaneous: No free abdominal fluid. Urinary bladder is well-distended and shows no gross bladder wall abnormality. Large amount of post void residual is seen. IMPRESSION: 1. Normal appearing liver, spleen, gallbladder. Slightly prominent pancreatic duct is seen, no discrete pancreatic lesion is noted. 2. Common bile duct size is in the upper limits of normal for patient's age. 3. Prominence of right renal collecting system, and may represent extrarenal pelvis versus hydronephrosis versus reflex. Large amount of post void residual. and may indicate reflux pathology. Dictated by: Tonio Dudley M.D. on 02/21/2019 at 21:33 Approved by: Tonio Dudley M.D. on 02/21/2019 at 21:38
[2019-02-21 21:06] LABS: Bacteria Urine None Seen; RBC Urine None Seen (0-5/HPF)
--- NOTE | 2019-02-21 21:06 | DI.CT.S_ITS ---
PROCEDURE: CT ABDOMEN PELVIS W CON INDICATIONS: elevated lipase, vomiting TECHNIQUE: After the administration of intravenous contrast, 5 mm thick sections acquired from the diaphragm to the symphysis. 5 mm coronal and sagittal reformats were acquired. For radiation dose reduction, the following was used: automated exposure control, adjustment of mA and/or kV according to patient size. COMPARISON: [facility], CT, ABDOMEN/PELVIS WITH CONTRAST, 01/15/2015, 9:06. FINDINGS: Image quality: Excellent. ABDOMEN: Lung bases: 7 mm nodular density in the anterior aspect of left lung base is seen, not seen on 2015 study series 3 image one. Bilateral lung bases are otherwise clear. Heart size is normal. Solid organs: Liver is normal in size and enhancement. Gallbladder is within normal limits. There is no intrahepatic biliary ductal dilatation. Common bile duct measures up to 7 mm in diameter and is within normal limits for patient's age. Mild prominence of pancreatic duct is seen and measures up to 4.5 mm in diameter near the head and uncinate process of pancreas. No definite discrete pancreatic mass is identified. Spleen is normal in size and enhancement. No adrenal nodules. Left kidney is surgically absent. Marked prominence of right renal collecting system and right ureter is seen extending to the level of the right UVJ. No calcified renal stone or ureteral stone is seen. Peritoneum and bowel: There is a small hiatal hernia. No abnormal bowel wall thickening or mesenteric fat stranding. No free fluid or free air. Sigmoid diverticulosis is seen, no CT evidence of acute diverticulitis. Nodes and vessels: No retroperitoneal or mesenteric adenopathy by size criteria. Aorta and inferior vena cava are normal in size. Miscellaneous: Small umbilical hernia is seen containing fat only. PELVIS: Genitourinary: Urinary bladder is markedly distended. Bladder wall thickness is normal. No calcified bladder stone. Miscellaneous: No inguinal hernias or adenopathy. Bones: No suspicious bony lesions. No vertebral body compression fractures. Osteoarthritic changes throughout bony pelvis are seen. Degenerative disc disease through all lower thoracic and lumbar spine is also noted. IMPRESSION: 1. Mild prominence of pancreatic duct near pancreatic head and uncinate process and measures up to 4.5 mm in diameter, increased since 2015 study. No gross abnormality is seen in gallbladder. Common bile duct is normal in size for patient's age. 2. Prior left nephrectomy. Prominence of right renal collecting system and right ureter extending to the level of the right UVJ with distended urinary bladder. No calcified renal stone, ureteral stone or bladder stone is seen. Finding likely represent reflex pathology. 3. No bowel obstruction. Small hiatal hernia. Sigmoid diverticulosis with no CT evidence of acute diverticulitis. No free fluid or free air. 4. 7 mm soft tissue density nodule in anterior aspect of left lung base. CT of chest in 3-6 months is recommended for evaluation of stability. Dictated by: Tonio Dudley M.D. on 02/21/2019 at 21:41 Approved by: Tonio Dudley M.D. on 02/21/2019 at 21:54
[2019-02-21 21:08] LABS: Appearance Urine UA CLEAR; Bilirubin Urine UA NEGATIVE (NEGATIVE); Color Urine UA YELLOW; Glucose Urine UA NEGATIVE (Negative); Ketones Urine UA 2+ (NEGATIVE); Leukocyte Esterase Urine UA 1+ (NEGATIVE); Nitrite Urine UA NEGATIVE (Negative); Occult Blood Urine UA NEGATIVE (Negative); Protein Urine UA NEGATIVE (Negative); Specific Gravity Urine UA 1.015 (1.000-1.035); Urobilinogen Urine UA 0.2 E.U./dL (0.2); pH Urine UA 7.5 (4.5-8.0)
[2019-02-21 21:18] LABS: Culture Indicated Urine Cult Not Indicated; Squamous Epithelial Cell Urine 5-10 /HPF (0-5/HPF); WBC Urine 10-30/HPF (0-5/HPF)
[2019-02-21 21:47] VITALS: BP 132/63; PULSE 75; RESP 16; O2SAT 100
[2019-02-21] MEDS: ONDANSETRON 4 MG ODT PREPACK 1 BOTTLE MISC (22:25)
[2019-02-21 22:33] VITALS: BP 126/53; PULSE 75; RESP 18; TEMP 36.7; O2SAT 100
== END 2019-02-21 22:33 ==
PROVIDERS: Emergency Provider Internal Medicine; PCP Registered Nurse
DX: R11.2 Nausea with vomiting, unspecified (principal); R50.9 Fever, unspecified
CPT/HCPCS: 36591; 51798; 74022; 74177; 76700; 80053; 81001; 83690; 85025; 96361; 96374; 96375; 99283; 99284; C9113; J2405; Q9967

== ENCOUNTER → 2019-02-25 07:44 | Outpatient (ROUT) | payer MEDICARE, SELFPAY ==
[2019-02-25 09:32] LABS: Lipase 241 U/L (23-300)
== END ==
PROVIDERS: Visit Provider Nurse Practitioner Family
DX: R74.8 Abnormal levels of other serum enzymes (principal)
CPT/HCPCS: 36415; 83690